=== PATIENT | female | born 1960 | race Caucasian/White ===

== ENCOUNTER 2019-10-05 06:44 | Inpatient (IN) ==
[2019-10-02 15:05] LABS: Basophils # 0.1 10*3/uL (0.0-0.2); Basophils % 0.9 % (0.0-0.8); Eosinophils # 0.4 10*3/uL (0.0-0.87); Eosinophils % 4.2 % (0.00-10.9); Hematocrit 35.8 VOL% (35.7-47.0); Hemoglobin 11.7 GM/DL (12.0-16.0); Immature Granulocytes % 0.3 %; Immature Granulocytes Absolute 0.03 #; Lymphocytes # 3.4 10*3/uL (1.4-4.0); Lymphocytes % 35.8 % (21.3-54.2); Mean Corpuscular HGB Conc 32.7 GM/DL (32-36); Mean Corpuscular Volume 91.3 FL (87-102); Mean Platelet Volume 11.1 FL (9.6-12.0); Monocytes % 6.4 % (1.7-12.7); Neutrophils % 52.4 % (38.7-73.9); Platelet Count 231 T/CUMM (130-400); Red Blood Count 3.92 MC/CUMM (3.8-5.5); Red Cell Distribution Width 15.4 % (9.3-17.3); White Blood Count 9.5 T/CUMM (4-12)
[2019-10-02 15:29] LABS: Alanine Aminotransferase 20 U/L (13-56); Alkaline Phosphatase 75 U/L (45-117); Aspartate Amino Transferase 13 U/L (0-37); Bilirubin,Total < 0.39 MG/DL (0.2-1.0); Blood Urea Nitrogen 11 MG/DL (7-18); Calcium 9.2 MG/DL (8.5-10.1); Estimated Glom Filtration Rate 57 ML/MIN; Glucose 70 MG/DL (74-106); Total Protein 8.2 G/DL (6.4-8.3)
[~2019-10-05 06:44] MED LIST: HEPARIN/NACL 0.9% 2 UNITS/ML 500 ML IV ONE; VANCOMYCIN 500 MG VIAL ONE; VANCOMYCIN INJ 500 MG in SODIUM CHLORIDE 0.9% 100 ML IV ONE
[2019-10-05] MEDS ORDERED: HEPARIN 5,000 UNIT/1 ML VIAL ONE (07:55)
[2019-10-05] MEDS ORDERED: LIDOCAINE 1% 20 ML VIAL ONE (07:55)
[2019-10-05] MEDS ORDERED: LACTATED RINGERS 1,000 ML IV SCH (08:30)
[2019-10-05] MEDS ORDERED: ROPIVACAINE 0.5% 30 ML VIAL ONE (10:13)
[2019-10-05] MEDS ORDERED: DEXAMETHASONE 4 MG/1 ML VIAL ONE ×2 (10:13→11:18)
[2019-10-05] MEDS ORDERED: SUGAMMADEX 200 MG/2 ML VIAL IV ONE (10:33)
[2019-10-05] MEDS ORDERED: GLUCAGON 1 MG VIAL IM PRN (10:43)
[2019-10-05] MEDS ORDERED: NALOXONE 0.4 MG/ML VIAL IV PRN (10:43)
[2019-10-05] MEDS ORDERED: DEXTROSE 10% 25 GM/250 ML BAG IV PRN (10:43)
[2019-10-05] MEDS ORDERED: ONDANSETRON 4 MG/2 ML VIAL IV PRN (10:43)
[2019-10-05] MEDS ORDERED: PROMETHAZINE 25 MG/1 ML VIAL IM PRN (10:43)
[2019-10-05] MEDS ORDERED: tiZANidine 4 MG TABLET PO PRN (10:46)
[2019-10-05] MEDS ORDERED: FUROSEMIDE 20 MG TABLET PO PRN (10:46)
[2019-10-05] MEDS ORDERED: DEXAMETHASONE INJ 20 MG in SODIUM CHLORIDE 0.9% 50 ML IV ONE (11:05)
[2019-10-05] MEDS ORDERED: fentaNYL 100 MCG/2 ML VIAL ONE (11:07)
[2019-10-05] MEDS ORDERED: ePHEDrine 50 MG/ML AMP ONE (11:08)
[2019-10-05] MEDS ORDERED: ACETAMINOPHEN 1,000 MG/100 ML VIAL IV ONE (11:09)
[2019-10-05] MEDS ORDERED: ACETAMINOPHEN INJ 1,000 MG in PREMIX 1 EACH IV ONE (11:14)
[2019-10-05] MEDS ORDERED: propofoL 200 MG/20 ML VIAL IV ONE (11:17)
[2019-10-05] MEDS ORDERED: LIDOCAINE 2% 5 ML VIAL ONE (11:17)
[2019-10-05] MEDS ORDERED: PROTAMINE SULFATE 50 MG/5 ML VIAL IV ONE (11:18)
[2019-10-05] MEDS ORDERED: HEPARIN 10,000 UNIT/10 ML VIAL ONE (11:18)
[2019-10-05] MEDS ORDERED: SEVOFLURANE 1 UNIT/15 MINUTE INH ONE (11:18)
[2019-10-05] MEDS ORDERED: MIDAZOLAM 2 MG/2 ML VIAL ONE (11:18)
[2019-10-05] MEDS ORDERED: PHENYLEPHRINE DRIP 20 MG/250 ML PREMIX IV ONE (11:18)
[2019-10-05] MEDS ORDERED: SODIUM CHLORIDE 0.9% 1,000 ML IV ONE (11:19)
[2019-10-05] MEDS ORDERED: ROCURONIUM 100 MG/10 ML VIAL IV ONE (11:19)
[2019-10-05] MEDS: PHENYLEPHRINE DRIP 40 MG/250 ML PREMIX IV SCH (12:46)
[2019-10-05] MEDS: LACTATED RINGERS 1,000 ML IV SCH ×2 (12:46→18:49)
[2019-10-05] MEDS: HYDROmorphone 2 MG/1 ML VIAL IV PRN ×4 (14:40→23:53)
[2019-10-05] MEDS: NITROPRUSSIDE 100 MG in DEXTROSE 5% 250 ML IV SCH (14:45)
[2019-10-05 15:28] LABS: Calcium 8.3 MG/DL (8.5-10.1); Osmolality,Calculated 281.3 MOS/KG (273-304); Thyroid Stimulating Hormone 0.565 uIU/ml (0.358-3.74)
[2019-10-05] MEDS ORDERED: hydrALAZINE 20 MG/1 ML VIAL IV PRN (15:45)
[2019-10-05] MEDS: GABAPENTIN 600 MG TABLET PO SCH (20:13)
[2019-10-05] MEDS: oxyCODONE/ACETAMINOPHEN 5-325 MG TABLET PO PRN (20:13)
[2019-10-05] MEDS: gemfibroziL 600 MG TABLET PO SCH (20:13)
[2019-10-06] MEDS: oxyCODONE/ACETAMINOPHEN 5-325 MG TABLET PO PRN ×3 (03:02→11:14)
[2019-10-06] MEDS: LACTATED RINGERS 1,000 ML IV SCH (04:21)
[2019-10-06] MEDS ORDERED: atenoloL 50 MG TABLET PO SCH (09:00)
[2019-10-06] MEDS ORDERED: ASPIRIN EC 81 MG TABLET PO SCH ×2 (09:00)
[2019-10-06] MEDS ORDERED: CLOPIDOGREL 75 MG TABLET PO SCH ×2 (09:00)
[2019-10-06] MEDS ORDERED: GLUCAGON 1 MG VIAL IM PRN (09:06)
[2019-10-06] MEDS ORDERED: DEXTROSE 10% 25 GM/250 ML BAG IV PRN (09:06)
[2019-10-06] MEDS: GABAPENTIN 600 MG TABLET PO SCH (09:35)
[2019-10-06] MEDS: gemfibroziL 600 MG TABLET PO SCH (09:35)
[2019-10-06] MEDS: PHENYLEPHRINE DRIP 40 MG/250 ML PREMIX IV SCH (11:42)
[2019-10-06] MEDS: NITROPRUSSIDE 100 MG in DEXTROSE 5% 250 ML IV SCH (11:42)
[2019-10-06] MEDS: HYDROmorphone 2 MG/1 ML VIAL IV PRN (13:20)
[2019-10-06 15:35] VITALS: BP 156/66
[2019-10-06] MEDS ORDERED: carvediloL 3.125 MG TABLET PO SCH (21:00)
== END 2019-10-06 16:04 | disposition home or self-care (01) | DRG 39 ==
LOC: N.SDSINP 06:44 → N.ICU 11:55 → N.3E 10-06 11:53
PROVIDERS: ADMIT Surgery; ATTEND Surgery